=== PATIENT | female | born 1995 ===

== ENCOUNTER 2017-04-27 18:49 | Emergency (ER) | payer MEDICAID, OTHER ==
[2017-04-27 18:49] VITALS: BMI 20.8
[2017-04-27 18:59] VITALS: BP 118/60; PULSE 80; RESP 18; TEMP 97; O2SAT 100
--- NOTE | 2017-04-27 20:08 | ED PDOC ---
HPI: Back Time Seen by Provider: 04/27/17 19:35 Chief Complaint (Nursing): Female Genitourinary Chief Complaint (Provider): flank pain History Per: Patient History/Exam Limitations: no limitations Onset/Duration Of Symptoms: Days (x3) Current Symptoms Are (Timing): Still Present Additional Complaint(s): Ruy Medeiros is a 21 year old female, currently 12 weeks , who presents to the emergency department with a complaint of right flank pain associated with suprapubic pain ongoing for 3 days. Denied fever, chills, vomiting, diarrhea or dysuria. Patient stated she has been taking Motrin at home. P:2 PMD: Duane Walker MD Past Medical History Reviewed: Historical Data, Nursing Documentation, Vital Signs Vital Signs: Last Vital Signs Temp 97 F L 04/27/17 18:54 Pulse 80 04/27/17 18:54 Resp 18 04/27/17 18:54 BP 118/60 04/27/17 18:54 Pulse Ox 100 04/27/17 18:54 - Medical History PMH: No Chronic Diseases - Surgical History Surgical History: - Family History Family History: States: Unknown Family Hx - Social History Current smoker - smoking cessation education provided: No Ex-Smoker (has not smoked in the last 12 months): No Alcohol: None Drugs: Denies - Home Medications Home Medications: Ambulatory Orders Medication Instructions Recorded oxyCODONE/Acetaminophen [Percocet 1 tab PO Q4 PRN #0 tab 09/12/15 5/325 mg Tab] - Allergies Allergies/Adverse Reactions: Allergies Allergy/AdvReac Type Severity Reaction Status Date / Time No Known Allergies Allergy Verified 05/27/15 10:07 Review of Systems ROS Statement: Except As Marked, All Systems Reviewed And Found Negative Constitutional: Negative for: Fever, Chills Gastrointestinal: Positive for: Abdominal Pain (suprapubic). Negative for: Vomiting, Diarrhea Genitourinary Female: Negative for: Dysuria Musculoskeletal: Positive for: Back Pain (right flank) Physical Exam - Reviewed Nursing Documentation Reviewed: Yes Vital Signs Reviewed: Yes - Physical Exam Appears: Positive for: Well, Non-toxic, No Acute Distress Head Exam: Positive for: ATRAUMATIC, NORMAL INSPECTION, NORMOCEPHALIC Skin: Positive for: Normal Color Eye Exam: Positive for: Normal appearance ENT: Positive for: Normal ENT Inspection Neck: Positive for: Normal, Painless ROM, Supple. Negative for: Decreased ROM Cardiovascular/Chest: Positive for: Regular Rate, Rhythm, Chest Non Tender Respiratory: Positive for: Normal Breath Sounds, Accessory Muscle Use. Negative for: Decreased Breath Sounds, Respiratory Distress Gastrointestinal/Abdominal: Positive for: Normal Exam, Soft. Negative for: Tenderness Back: Positive for: Normal Inspection. Negative for: L CVA Tenderness, R CVA Tenderness Extremity: Positive for: Normal ROM. Negative for: Tenderness, Pedal Edema, Deformity Neurologic/Psych: Positive for: Alert, Oriented - Laboratory Results Result Diagrams: 04/27/17 20:53 04/27/17 20:53 - ECG O2 Sat by Pulse Oximetry: 100 (RA) Pulse Ox Interpretation: Normal Medical Decision Making Medical Decision Making: Initial Impression: Flank pain; Initial Plan: * Type and screen * BETA-HCG * CMP * CBC * Urine C&S * Urinalysis * US OB preg Time: 2100 --Labs: within normal limits --Awaiting US results. [id number] FINDINGS: Gestation: There is a single living intrauterine identified. Measurements correlate with a mean gestational age of 13 weeks. The estimated date of delivery is November 02, 2017. Embryonic/ cardiac activity is identified, at a rate of 129 beats per minute. The placenta is normal and fundal in location. BPD 1.9 cm AC 25.8 cm HC 7.5 cm FL 0.9 cm Uterus/cervix: The cervix is closed measuring 4.7 cm. The cervix is closed measuring 4.4 cm. No myometrial mass. Free fluid: No free fluid. IMPRESSION: Live intrauterine , with no evidence of early complications. Followup dedicated anatomic survey between 19-21 weeks is recommended. Urine: no infection Patient is stable for discharge and will follow up with personal [employer]. Patient notes that she feels better after Tylenol. Scribe Attestation: Documented by Leatha Booker, acting as a scribe for Moody Fleming MD. Provider Scribe Attestation: All medical record entries made by the Scribe were at my direction and personally dictated by me. I have reviewed the chart and agree that the record accurately reflects my personal performance of the history, physical exam, medical decision making, and the department course for this patient. I have also personally directed, reviewed, and agree with the discharge instructions and disposition. Disposition - Clinical Impression Clinical Impression: - Patient ED Disposition Is Patient to be Admitted: No Counseled Patient/Family Regarding: Studies Performed, Diagnosis, Need For Followup - Disposition Referrals: [facility] [Outside] Disposition: Routine/Home Disposition Time: 21:45 Condition: IMPROVED Additional Instructions: follow up with your route sales manager in 1-2 days take tylenol as needed for pain return to the ED with any worsening or concerning symptoms Instructions: Preeclampsia (ED) Forms: [employer] (Setswana) Print Language: ROMANIAN
[2017-04-27 21:00] LABS: BASO % 0.5 % (0.0-2.0); EOS # 0.1 K/uL (0.0-0.7); EOS % 1.4 % (0.0-4.0); HEMATOCRIT 37.2 % (34.0-47.0); LYMPH # 2.1 K/uL (1.0-4.3); LYMPH % 25.4 % (20.0-40.0); MEAN CELL VOLUME 88.1 fl (81.0-99.0); MEAN CORPUSCULAR HEMOGLOBIN 29.6 pg (27.0-31.0); MEAN CORPUSCULAR HGB CONC 33.6 g/dL (33.0-37.0); MEAN PLATELET VOLUME 8.2 fl (7.2-11.7); MONO # 0.7 K/uL (0.0-0.8); MONO % 8.7 % (0.0-10.0); NEUT # 5.3 K/uL (1.8-7.0); NRBC % 0.1 % (0.0-0.0); RED CELL DISTRIBUTION WIDTH 13.6 % (11.5-14.5); WHITE BLOOD COUNT 8.3 K/uL (4.8-10.8)
[2017-04-27 21:08] LABS: ALB/GLOB RATIO 1.2 (1.0-2.1); ALKALINE PHOSPHATASE 91 U/L (38-126); ALT/SGPT 33 U/L (9-52); AST/SGOT 25 U/L (14-36); BILIRUBIN,TOTAL < 0.1 mg/dl (0.2-1.3); BLOOD UREA NITROGEN 5 mg/dl (7-17); CALCIUM 9.5 mg/dL (8.4-10.2); CARBON DIOXIDE 22 mmol/L (22-30); CHLORIDE 108 mmol/L (98-107); GFR AFRICAN-AMERICAN > 60; GLUCOSE,RANDOM 96 mg/dL (65-105); SODIUM 142 mmol/l (132-148); TOTAL PROTEIN 7.4 G/DL (6.3-8.2)
[2017-04-27 21:15] LABS: POTASSIUM 3.4 MMOL/L (3.6-5.0)
[2017-04-27 21:42] LABS: RBC URINE < 1 /hpf (0-3); URINE BILIRUBIN NEGATIVE (NEGATIVE); URINE BLOOD NEGATIVE (NEGATIVE); URINE COLOR STRAW (YELLOW); URINE GLUCOSE (UA) 150 mg/dL (Normal); URINE KETONE NEGATIVE (NEGATIVE); URINE LEUKOCYTE ESTERASE TRACE Leu/uL (Negative); URINE PROTEIN NEGATIVE (NEGATIVE); URINE UROBILINOGEN 0.2-1.0 mg/dL (0.2-1.0); WBC URINE < 1 /hpf (0-5)
--- NOTE | 2017-04-27 22:46 | US ---
EXAM: US First Trimester, Transabdominal CLINICAL HISTORY: 21 years old, female; Pain; Other: Back; Gestational age or lmp: 13weeks; ; Additional info: Preganncy suprapubic pain TECHNIQUE: Real-time transabdominal and transvaginal obstetrical ultrasound of the maternal pelvis and a first trimester with image documentation. COMPARISON: US - OB , LIMITED 2015-05-27 13:00 FINDINGS: Gestation: There is a single living intrauterine identified. Measurements correlate with a mean gestational age of 13 weeks. The estimated date of delivery is November 02, 2017. Embryonic/ cardiac activity is identified, at a rate of 129 beats per minute. The placenta is normal and fundal in location. BPD 1.9 cm AC 25.8 cm HC 7.5 cm FL 0.9 cm Uterus/cervix: The cervix is closed measuring 4.7 cm. The cervix is closed measuring 4.4 cm. No myometrial mass. Free fluid: No free fluid. IMPRESSION: Live intrauterine , with no evidence of early complications. Followup dedicated anatomic survey between 19-21 weeks is recommended.
== END 2017-04-27 23:48 | disposition home or self-care (01) ==
LOC: H.ER 18:49
DX: O26.92 Pregnancy related conditions, unspecified, second trimester (principal); R10.2 Pelvic and perineal pain; Z3A.12 12 weeks gestation of pregnancy

== ENCOUNTER 2017-07-06 09:27 | Emergency (ER) | payer OTHER ==
[2017-07-06 12:02] VITALS: BMI 22.6
[2017-07-06 16:15] VITALS: BP 106/61; PULSE 93
--- NOTE | 2017-07-07 08:58 | OBHP ---
Datetime: 07/06/2017 11:52 IP Adm Impression: , intrauterine IP Chief Complaint Other: diarrhea, vomiting and abdominal pain IP Admit Plan: Observation/Evaluation Admit Comment, IP Provider: 21 yo at 22.2 weeks GA based on LMP ON 01/31/27, C/W lenin dumont netta , DONNIE 11/07/17 presents to [facility] w/ c/o nausea, NBNB vomiting x 2 , watery diarrhea x 6 and epiga stric pain( 8/) since 3 am this morning. Pt reports she ate pork and rice, and mixed drinks consist s of raw eggs and evaporated milk last night. Last diarrhea was 11 am this moring and vomiting was at 3 am. Denies any blood or mucus in stool. Denies dysuria, fever, chills, headache or dizziness. Antoine es VB, CTX or LOF. reports +FM. PNC: Dr. Walker, next appointment on 07/08/17. past obhx: X 1 in 2010 at 36 weeks GA, x 1 IN 2016 at 35 weeks GA due to breech pre senation. Past gynhx: denies hx STI or abnormal PAP pmhx: asthma past shx: in 2016 social hx: denies drinking ETOH, smoking or using recreational drugs. family hx: Denies hx DMII or CAD allergies: NKDA medication: PNV Assessment: 21 yo IUP@22.2 weeks GA, has acute gastroenteritis. Plan: NST is reassuring Pt is to be further evaluated in the emergency room. Case d/w on-call OB hospitalist Dr. Elizabeth Olmstead, pgy- OB attending addendum: Patient seen and examined by me with Dr. olmstead. Patient discussed with Dr. Walker and Dr. Knapp. Patient referred to ENT for evaluation and ma ashley possible salmonella poisoning. Patient discussed with Dr. Snider and he was advised to call Dr. Knapp with any questions concerning management. Extremities - PN: Normal Back - PN: Normal Lungs - PN: Normal Heart - PN: Normal Neurologic - PN: Normal HEENT - PN: Normal General - PN: Normal FHR - Baseline A Provider: 150s Comments, ACOG Physical Exam: Abdomen: soft, gravid, +bs. mild epigastric tenderness, no rebound or guarding. IP Hx Assessment: The History has been Reviewed and is Current EGA AdmitDate IP: 22.2 Vital Signs Provider: Reviewed IP Chief Complaint: Illness; Maternal discomfort NICHD Variability Prov Fetus A: Moderate 6-25bpm NICHD Accel Fetus A IP Provider: 10X10 FHR Category Provider Fetus A: Category I NICHD Decel Fetus A IP Provider: None (Annotations: Data stored by CPN on behalf of user)
== END 2017-07-06 12:20 | disposition still patient (30) ==
LOC: H.EROB2 09:27 → H.L&D 09:27 → H.EROB2 12:20
DX: O99.612 Diseases of the digestive system complicating pregnancy, second trimester (principal); K52.9 Noninfective gastroenteritis and colitis, unspecified; Z3A.20 20 weeks gestation of pregnancy; Z87.59 Personal history of other complications of pregnancy, childbirth and the puerperium

== ENCOUNTER 2017-07-06 12:20 | Emergency (ER) | payer OTHER ==
[2017-07-06 12:21] VITALS: BMI 22.6
[2017-07-06 12:28] VITALS: BP 139/54; PULSE 93; RESP 20; TEMP 97; O2SAT 100
--- NOTE | 2017-07-06 14:07 | ED PDOC ---
HPI: Abdomen Time Seen by Provider: 07/06/17 12:22 Chief Complaint (Nursing): GI Problem Chief Complaint (Provider): Diarrhea x 1, abdominal pain History Per: Patient History/Exam Limitations: no limitations Onset/Duration Of Symptoms: Days Outside of [place] travel?: No Current Symptoms Are (Timing): Still Present Associated Symptoms: Nausea, Vomiting, Diarrhea (x 1 ). denies: Fever, Chills Additional Complaint(s): Pt reports epigastric pain which has resolved and one episode of diarrhea yesterday. Past Medical History Reviewed: Historical Data, Nursing Documentation, Vital Signs Vital Signs: Last Vital Signs Temp 97 F L 07/06/17 12:26 Pulse 93 H 07/06/17 12:26 Resp 20 07/06/17 12:26 BP 139/54 L 07/06/17 12:26 Pulse Ox 100 07/06/17 14:07 - Medical History PMH: No Chronic Diseases - Surgical History Surgical History: - Family History Family History: States: Unknown Family Hx - Living Arrangements Living Arrangements: With Family - Social History Current smoker - smoking cessation education provided: No - Home Medications Home Medications: Ambulatory Orders Medication Instructions Recorded oxyCODONE/Acetaminophen [Percocet 1 tab PO Q4 PRN #0 tab 09/12/15 5/325 mg Tab] - Allergies Allergies/Adverse Reactions: Allergies Allergy/AdvReac Type Severity Reaction Status Date / Time No Known Allergies Allergy Verified 05/27/15 10:07 Review of Systems ROS Statement: Except As Marked, All Systems Reviewed And Found Negative Physical Exam - Reviewed Nursing Documentation Reviewed: Yes Vital Signs Reviewed: Yes - Physical Exam Appears: Positive for: Well, Non-toxic, No Acute Distress Head Exam: Positive for: ATRAUMATIC, NORMAL INSPECTION, NORMOCEPHALIC Skin: Positive for: Normal Color, Warm, DRY Eye Exam: Positive for: Normal appearance ENT: Positive for: Normal ENT Inspection Neck: Positive for: Normal, Painless ROM Cardiovascular/Chest: Positive for: Regular Rate, Rhythm Respiratory: Positive for: CNT, Normal Breath Sounds Gastrointestinal/Abdominal: Positive for: Normal Exam, Bowel Sounds, Soft. Negative for: Tenderness Back: Positive for: Normal Inspection Extremity: Positive for: Normal ROM Neurologic/Psych: Positive for: Alert, Oriented - Laboratory Results Result Diagrams: 07/06/17 14:06 07/06/17 14:06 - ECG O2 Sat by Pulse Oximetry: 100 Medical Decision Making Medical Decision Makin - Pt requesting to eat. Stool sample sent to lab, not diarrhea. Disposition - Clinical Impression Clinical Impression: Viral gastroenteritis - Patient ED Disposition Is Patient to be Admitted: No Counseled Patient/Family Regarding: Diagnosis, Need For Followup - Disposition Disposition: Routine/Home Disposition Time: 14:44 Condition: GOOD Instructions: Gastroenteritis (ED) Forms: [employer] (Swedish)
[2017-07-06 14:10] LABS: BASO % 0.3 % (0.0-2.0); EOS # 0.1 K/uL (0.0-0.7); EOS % 0.7 % (0.0-4.0); LYMPH # 0.9 K/uL (1.0-4.3); LYMPH % 9.5 % (20.0-40.0); MEAN CELL VOLUME 88.6 fl (81.0-99.0); MEAN CORPUSCULAR HEMOGLOBIN 30.4 pg (27.0-31.0); MEAN CORPUSCULAR HGB CONC 34.3 g/dL (33.0-37.0); MEAN PLATELET VOLUME 7.9 fl (7.2-11.7); MONO # 0.5 K/uL (0.0-0.8); MONO % 5.8 % (0.0-10.0); NEUT # 7.8 K/uL (1.8-7.0); NEUT % 83.7 % (50.0-75.0); PLATELET COUNT 192 K/uL (130-400); RED CELL DISTRIBUTION WIDTH 13.2 % (11.5-14.5); WHITE BLOOD COUNT 9.3 K/uL (4.8-10.8)
[2017-07-06 14:27] LABS: ALB/GLOB RATIO 1.1 (1.0-2.1); ALKALINE PHOSPHATASE 92 U/L (38-126); ALT/SGPT 38 U/L (9-52); AST/SGOT 25 U/L (14-36); BILIRUBIN,TOTAL 0.4 mg/dl (0.2-1.3); BLOOD UREA NITROGEN 5 mg/dl (7-17); CALCIUM 8.4 mg/dL (8.4-10.2); CARBON DIOXIDE 20 mmol/L (22-30); CHLORIDE 106 mmol/L (98-107); GFR AFRICAN-AMERICAN > 60; GLUCOSE,RANDOM 79 mg/dL (65-105); LIPASE 47 U/L (23-300); POTASSIUM 3.4 MMOL/L (3.6-5.0); SODIUM 135 mmol/l (132-148); TOTAL PROTEIN 6.8 G/DL (6.3-8.2)
[2017-07-06 14:39] LABS: NEUTROPHIL 83 % (42-75); REACTIVE LYMPHOCYTES 1 % (0-0); TOTAL CELLS COUNTED 100
== END 2017-07-06 15:30 | disposition home or self-care (01) ==
LOC: H.ER 12:20
DX: A08.4 Viral intestinal infection, unspecified (principal)

== ENCOUNTER 2017-10-11 11:14 | Inpatient (IN) | payer OTHER ==
[2017-10-11 11:30] VITALS: BMI 25.1
[2017-10-11] MEDS ORDERED: ceFAZolin 2 GM in Sodium Chloride 0.9% 100 ML IVPB ONE (11:45)
[2017-10-11] MEDS: Lactated Ringer's 1,000 ML IV SCH ×2 (11:50→13:06)
[2017-10-11] MEDS ORDERED: Oxytocin 30 units/LR 500ML 30 U/500 ML BAG IV ONE (12:08)
[2017-10-11] MEDS ORDERED: ceFAZolin IV 1 gm in Dextrose 0 GM/0 ML BAG IVPB ONE (12:12)
[2017-10-11 12:33] LABS: BASO % 0.3 % (0.0-2.0); EOS # 0.1 K/uL (0.0-0.7); EOS % 0.7 % (0.0-4.0); HEMOGLOBIN 11.9 g/dL (12.0-16.0); LYMPH # 1.8 K/uL (1.0-4.3); LYMPH % 20.2 % (20.0-40.0); MEAN CELL VOLUME 87.4 fl (81.0-99.0); MEAN CORPUSCULAR HGB CONC 34.3 g/dL (33.0-37.0); MEAN PLATELET VOLUME 8.6 fl (7.2-11.7); MONO # 0.8 K/uL (0.0-0.8); MONO % 8.6 % (0.0-10.0); NEUT # 6.2 K/uL (1.8-7.0); NEUT % 70.2 % (50.0-75.0); NRBC % 0.1 % (0.0-0.0); RBC 3.98 Mil/uL (3.80-5.20); RED CELL DISTRIBUTION WIDTH 13.1 % (11.5-14.5); WHITE BLOOD COUNT 8.8 K/uL (4.8-10.8)
[2017-10-11] MEDS ORDERED: Morphine 1 mg/ml preservative-free Inj(Duramorph) ONE (12:45)
[2017-10-11] MEDS ORDERED: ePHEDrine 50 mg/ml Inj ONE (12:45)
[2017-10-11] MEDS ORDERED: Sodium Chloride 0.9% 10 ML IV ONE (12:45)
--- NOTE | 2017-10-11 13:23 | OBADHP ---
Datetime: 10/11/2017 13:17 IP Chief Complaint Other: prev C/S IP Adm Impression Other: prev C/Sin labor Admit Comment, IP Provider: admit for repeat C/S Extremities - PN: Normal Abdomen - PN: Abnormal Back - PN: Normal Breast - PN: Normal Lungs - PN: Normal Heart - PN: Normal Thyroid - PN: Normal Neurologic - PN: Normal HEENT - PN: Normal General - PN: Normal Presentation-Admit: C FHR - Baseline A Provider: 150 Membranes, Provider: Ruptured Contraction Comments Provider: irregular Comments, ACOG Physical Exam: Abd gravid fundus at 32 cm above sp ext no calf tenderness Gestation - Est Wks by US: 36.0 Nitrazine Provider: Positive IP Hx Assessment: The History has been Reviewed and is Current Vital Signs Provider: Reviewed IP Chief Complaint: Uterine contractions; Suspected ruptured membranes; Other NICHD Variability Prov Fetus A: Moderate 6-25bpm NICHD Accel Fetus A IP Provider: 10X10 Dilatation, Provider: 2-3 cm Effacement, Provider: 50-60 Genitourinary Exam: Normal DTRs - PN: Normal EGA AdmitDate IP: 36.1 IP Adm Impression: , intrauterine ; Active labor IP Admit Plan: Admit to unit; Initiate Section protocol Datetime: 07/06/2017 11:52 FHR Category Provider Fetus A: Category I NICHD Decel Fetus A IP Provider: None
[2017-10-11] MEDS ORDERED: DiphenhydrAMINE 50 mg/ml Inj IVP PRN (14:19)
[2017-10-11] MEDS ORDERED: Oxycodone/Acetaminophen 5/325 mg Tab PO PRN ×4 (14:19→20:15)
--- NOTE | 2017-10-11 15:03 | OBDS ---
DELIVERY PERSONNEL Delivery Doctor: Mandy Walker MD Scrub Nurse: Kinjal Renteria OBT Workgroup Leader: Shai Jaeger RN Anesthesiologist: Geraldo Guadalupe MD MATERNAL INFORMATION Delivery Anesthesia: Spinal Medications in Delivery: Pitocin 30u/500LR Estimated Blood Loss (ml): 800 Placenta Cultured: No Maternal Complications: None Provider Comments: see surgeons note LABOR SUMMARY EDC: 11/07/2017 00:00 LABOR INFORMATION Reason for Induction: Not Applicable Group B Beta Strep: Negative Steroids Given: None Reason Steroids Not Administered: Not Applicable STAGES OF LABOR Stage 3 hrs: -1 Stage 3 min: -59 VAGINAL DELIVERY Episiotomy: None Laceration Extension: N/A Laceration Type: None Laceration Repair: Not Applicable Laceration Repair Note: n/a Sponge Count Correct: Yes Sharps Count Correct: Yes Count Comment: count correct x3 CSECTION DELIVERY Primary Indication: Other Other Primary Indication: possible ROM Secondary Indication: prev C/S in labor CSection Incision: Lower Uterine Transverse Uterine Closure: Double-layer closure BABY A INFORMATION Delivery Date/Time: 10/11/2017 14:02 Method of Delivery: Born in Route : No : N/A Forceps: N/A Vacuum Extraction: N/A Shoulder Dystocia : No SHOULDER DYSTOCIA BABY A Delivery Date/Time: 10/11/2017 14:02 PRESENTATION/POSITION BABY A Presentation: Cephalic PLACENTA INFORMATION BABY A Placenta Delivery Time : 10/11/2017 12:03 Placenta Method of Delivery: Manual Removal Placenta Status: Delivered SCORES BABY A Heart Rate 1 min: >100 bpm Resp Effort 1 min: Good Cry Reflex Irritability 1 min: Cough or Sneeze or Pulls Away Muscle Tone 1 min: Active Motion Color 1 min: Body [place], Extremities Blue SCORE 1 MIN: 9 Heart Rate 5 min: >100 bpm Resp Effort 5 min: Good Cry Reflex Irritability 5 min: Cough or Sneeze or Pulls Away Muscle Tone 5 min: Active Motion Color 5 min: Body [place], Extremities Blue SCORE 5 MIN: 9 INFANT INFORMATION BABY A Gestational Age at Delivery: 36.1 Gestational Status: Outcome : Liveborn Infant Condition : Stable Sex: Female IDENTIFICATION/MEDS BABY A ID Band Number: [id number] ID Band Location: Left Leg; Left Arm WEIGHT/LENGTH BABY A Birthweight (gms): 2370 Weight (lb): 5 Weight (oz): 4 CORD INFORMATION BABY A No. Cord Vessels: 3 Nuchal Cord : N/A Cord Blood Taken: Yes ASSESSMENT BABY A Infant Complications: None Physical Findings at Delivery: Within Normal Limits Infant Respirations: Appears Normal Unclaimed Property Manager/ALS Called : Yes Infant Care By: Transferred To: Nursery
[2017-10-11] MEDS ORDERED: cefOXitin IV 1 gm in Dextrose 1 GM/50 ML BAG IVPB SCH (17:00)
[2017-10-11] MEDS: cefOXitin IV 1 gm in Dextrose 1 GM/50 ML BAG IVPB SCH (21:05)
[2017-10-12] MEDS ORDERED: Lactated Ringer's 1,000 ML IV SCH
[2017-10-12] MEDS: cefOXitin IV 1 gm in Dextrose 1 GM/50 ML BAG IVPB SCH ×3 (04:05→21:39)
[2017-10-12 06:51] LABS: HEMOGLOBIN 10.2 g/dL (12.0-16.0); MEAN CELL VOLUME 87.1 fl (81.0-99.0); MEAN CORPUSCULAR HEMOGLOBIN 30.3 pg (27.0-31.0); MEAN CORPUSCULAR HGB CONC 34.9 g/dL (33.0-37.0); RBC 3.37 Mil/uL (3.80-5.20); RED CELL DISTRIBUTION WIDTH 13.1 % (11.5-14.5); WHITE BLOOD COUNT 10.6 K/uL (4.8-10.8)
--- NOTE | 2017-10-12 11:48 | OP ---
PROCEDURE DATE: 10/11/2017 PREOPERATIVE DIAGNOSES: 1. at term. 2. Previous section in labor. 3. Possible rupture of membranes. POSTOPERATIVE DIAGNOSES: 1. at term. 2. Severe pelvic adhesions. PROCEDURE PERFORMED: Repeat low-transverse segment section and lysis of adhesion. SURGEON: Duane Walker MD ANALYTICAL STRATEGIST: Zack Jennings MD. Dr. Jennings was there during the entire case. [facility] Nurse Staff needed in providing positioning of the patient, delivery of the baby, opening and closure of the abdomen. ANESTHESIA USED: Spinal. ANESTHESIA ADMINISTERED BY: Jack Guadalupe MD ESTIMATED BLOOD LOSS: 800 mL. DRAINS USED: None. REPLACEMENTS USED: None. FINDINGS: 1. Delivery of a living baby girl, baby appears adequate for gestational age, baby cried spontaneously, and pediatrist in attendance. score of 9 and 9. 2. Amniotic fluid, clear. 3. Placenta, complete and intact. 4. Both tubes and ovaries appear grossly within normal limits to inspection bilaterally. 5. Adhesions of the omentum to the anterior abdominal wall and bladder area, also bladder to the lower transverse segment of the uterus, some of this adhesions lysed using blunt and sharp dissection without any complications. DESCRIPTION OF PROCEDURE: The patient was taken to the operating room and placed on the operating table in a supine position. Following the induction of spinal anesthesia, the patient was then replaced in a supine position. A Sarabia catheter was then placed into the bladder and clear fluid was then evacuated from the bladder. Venodyne boots were applied to both legs and the abdomen was then draped and prepped in an usual sterile manner. Anesthesia tested and found to be well secured and a Pfannenstiel incision was then made using sharp dissection along the edges of the previous incision. The incision was then extended down to the subcutaneous tissue using sharp dissection. Hemostasis was obtained by means of electrocoagulation. At this time, the fascia was then identified, was then entered at the midline. Incision of the fascia was then extended laterally on each direction using sharp dissection. Following this, the rectus muscle was then slid at the midline disposing the peritoneum. Peritoneal layer was then picked up using Isaura clamp, retracted superiorly and then entered using sharp dissection. Incision on the peritoneum was then carefully extended superiorly and inferiorly under direct visualization. At this time, severe adhesions of the omentum to the anterior abdominal wall preventing full visualization of the pelvis, these adhesions was then clamped, cut and ligating using 0-Vicryl suture and using also a electrocoagulation. No bleeding noted. At this time, the low-transverse segment of the uterus was then identified. Adhesion of the bladder to this area were then noted to be present, some of these adhesions were lysed using blunt and sharp dissection without any complications. The bladder was then retracted inferiorly using the Garland retractor. Following this, a low-transverse segment of the uterus was then identified and entered using sharp dissection. Incision was then extended laterally on each direction using bandage scissors. Clear fluid noted to be present at this time. Using a manual scooping procedure, a living baby girl was then delivered. The baby was immediately and aggressively aspirated using the bulb suction. The baby cried spontaneously. The umbilicus was then doubly clamped, cut, and the baby handed to the Pediatric personnel who was standing by. Samples of cord blood were then obtained and the placenta was then delivered complete and intact. At this time, the uterus was then exteriorized to provide better visualization. The uterine cavity was then thoroughly cleaned using moist lap pads and the uterus contracted well. At this time, the uterine incision was then secured using multiple T clamps and the uterine incision was then approximated using 0 Vicryl suture in a continuous interlocking manner. The second layer was also applied using 0 Vicryl suture in a continuous manner. Hemostasis was checked and found to be well secured. Following this, we then proceeded to irrigate the pelvic cavity. Free amniotic fluid and blood was then evacuated from the pelvic cavity. All operative areas checked, hemostatically secured. Both tubes and ovaries appeared grossly within normal limits to inspection bilaterally. Again, all operative areas checked, hemostatically secured and the uterus allowed to retract back into its original position. Again, the pelvic cavity was then irrigated with saline solution. Hemostasis was secured and the peritoneum was then closed using 0-Vicryl suture in a continuous manner. At this time, the rectus muscle was also approximated in the midline using 0-Vicryl suture in a continuous manner. Hemostasis checked and found to be well secured. The fascia was then identified, it was then approximated using 1 Vicryl suture in a continuous manner. Fascia was then checked and found to be free of defect. Subcutaneous tissue irrigated using saline solution and approximated using several interrupted 2-0 plain sutures. The skin was then approximated using a 3-0 Prolene in a subcuticular fashion. Steri-Strips were then applied. The patient tolerated the procedure well. There were no complications. She was transferred to the recovery room in satisfactory condition. Clear fluid noted to be present in the Sarabia bag at this time. Sponge, instruments, and needle counts were correct x3. Duane Walker MD MTDD
--- NOTE | 2017-10-13 07:39 | OBPPN ---
Datetime: 10/13/2017 07:29 PP Pain Prov: Within normal limits PP Pain Prov comment: no SOB, chest or leg pains PP Nausea Prov: Denies PP Flatus Prov: Yes PP BM Prov: No PP Breasts Prov: Normal PP Lungs Prov: Normal PP Abdomen/Uterus Prov: Abnormal PP Lochia Prov: Normal PP Vulva/Perineum Prov: Normal PP CVA Tenderness Prov: Normal PP Extremities Prov: Normal PP C/S Incision Prov: Normal PP Progress Prov: Normal PP Comments Phys Exam Prov: breast not engorged NT, abd soft ND, depressible fundus firm below the u mb, incision clean and dry no suppt or discharge no active bleeding Ext no calf tendernes PP Impression Prov: Normal progression PP Plan Prov: Continue present management PP Progress Note Prov: CBC stable Continue PO care and OOB and ambulation Dulcolax suppt if no bm th is pm IP PP Procedures: None Vital Signs Provider PP: Reviewed
[2017-10-13] MEDS: Benzocaine/Menthol (Cepacol) Lozenge PO PRN (11:03)
[2017-10-14] MEDS: Benzocaine/Menthol (Cepacol) Lozenge PO PRN (01:58)
--- NOTE | 2017-10-14 07:56 | OBPPN ---
Datetime: 10/14/2017 07:51 PP Pain Prov: Within normal limits PP Pain Prov comment: Denies SOB, chest or leg pains PP Nausea Prov: Denies PP Flatus Prov: Yes PP BM Prov: Yes PP Breasts Prov: Normal PP Lungs Prov: Normal PP Abdomen/Uterus Prov: Abnormal PP Lochia Prov: Normal PP Vulva/Perineum Prov: Normal PP CVA Tenderness Prov: Normal PP Extremities Prov: Normal PP C/S Incision Prov: Normal PP Progress Prov: Normal PP Comments Phys Exam Prov: breast not engorged NT, abd soft ND fundus firm below the umb Incjision clean and dry no suppt discharge or active bleeding Prolene in place Ext no calf tenderness PP Impression Prov: Normal progression PP Plan Prov: Discharge PP Progress Note Prov: D/c home with instructions and follow up office i wk IP PP Procedures: None Vital Signs Provider PP: Reviewed
--- NOTE | 2017-10-14 08:01 | OBDCSUM ---
Datetime: 07/06/2017 11:57 Discharged to, Provider: Home Disch Instr Activity: Bedrest; May be up to bathroom; May be up for meals; May Shower Disch Instr Diet: Regular Discharge Instructions, Provider: Routine instructions given Discharge Diagnosis, Provider: Delivery Follow up in weeks, Provider: 1 wk Contraception discussed, Prov: Yes Disch Activity Restrictions: No exercising; No lifting; No driving; Minimize walking; Minimize stair -climbing; No sexual activity; Nothing in vagina - [place], tampons, douche Discharge Comment, Provider: rx for percocet and continue PNC vit and iron Discharge Diagnosis Prov Other: srom, prev C/s in labor Contraception after Delivery: Undecided
--- NOTE | 2017-10-14 08:07 | OBDCSUM ---
Datetime: 10/14/2017 08:03 Discharged to, Provider: Home Follow up at, Provider: Dr betancourt Disch Instr Activity: Bedrest; May be up to bathroom; May be up for meals; May Shower Disch Instr Diet: Regular Discharge Instructions, Provider: Routine instructions given Discharge Diagnosis, Provider: Delivery Discharge Time: 10/14/2017 08:04 Follow up in weeks, Provider: 1wk Contraception discussed, Prov: Yes Disch Activity Restrictions: No exercising; No lifting; No driving; Minimize walking; Minimize stair -climbing; No sexual activity; Nothing in vagina - [place], tampons, douche Discharge Comment, Provider: percocet rx given and continue PNC vjit and iron Discharge Diagnosis Prov Other: srom, pre C/S in labor Contraception after Delivery: Undecided Datetime: 07/06/2017 11:57 Discharged to, Provider: Home Disch Instr Activity: Bedrest; May be up to bathroom; May be up for meals; May Shower Disch Instr Diet: Regular Discharge Instructions, Provider: Routine instructions given Discharge Diagnosis, Provider: Delivery Discharge Time: 10/14/2017 11:57 Follow up in weeks, Provider: 1 wk Contraception discussed, Prov: Yes Disch Activity Restrictions: No exercising; No lifting; No driving; Minimize walking; Minimize stair -climbing; No sexual activity; Nothing in vagina - [place], tampons, douche Discharge Comment, Provider: rx for percocet and continue PNC vit and iron Discharge Diagnosis Prov Other: srom, prev C/s in labor Contraception after Delivery: Undecided
[2017-10-14] MEDS ORDERED: Lansinoh for Breast Feeding Mothers TP ONE (10:24)
[2017-10-14 18:01] VITALS: BP 96/58; PULSE 84; RESP 20; TEMP 97.7; O2SAT 100
== END 2017-10-14 13:20 | disposition home or self-care (01) | DRG 371 ==
LOC: H.EROB2 11:14 → H.L&D 11:59 → H.OB/GYN 20:00
PROVIDERS: ADMIT Specialist; ATTEND Specialist
PROC: 10D00Z1 Extraction of Products of Conception, Low, Open Approach (ICD-10-PCS; principal; 2017-10-11)
PROC: 4A1HXCZ Monitoring of Products of Conception, Cardiac Rate, External Approach (ICD-10-PCS; 2017-10-11)
DX: O34.219 Maternal care for unspecified type scar from previous cesarean delivery (principal); N85.8 Other specified noninflammatory disorders of uterus; O60.10X0 Preterm labor with preterm delivery, unspecified trimester, not applicable or unspecified; Z3A.36 36 weeks gestation of pregnancy; Z37.0 Single live birth; N73.6 Female pelvic peritoneal adhesions (postinfective); O99.89 Other specified diseases and conditions complicating pregnancy, childbirth and the puerperium

== ENCOUNTER 2018-08-24 17:57 | Emergency (ER) | payer MEDICAID, OTHER ==
[2018-08-24 17:58] VITALS: BMI 25.1
[2018-08-24 18:41] VITALS: RESP 16; O2SAT 100
[2018-08-24] MEDS ORDERED: Sodium Chloride 0.9% 1,000 ML IV STA (19:40)
--- NOTE | 2018-08-24 20:27 | ED PDOC ---
HPI: Abdomen Time Seen by Provider: 08/24/18 19:27 Chief Complaint (Nursing): Abdominal Pain Chief Complaint (Provider): Abdominal Pain History Per: Patient History/Exam Limitations: no limitations Onset/Duration Of Symptoms: Days (x1 day) Current Symptoms Are (Timing): Still Present Location Of Pain/Discomfort: Epigastric Associated Symptoms: Nausea, Vomiting Additional Complaint(s): Ruy Medeiros is a 23 year old female with a past medical history of gastritis, who presents to the emergency department complaining of abdominal pain associated with nausea and x3-6 episodes of non bilious and non bloody vomiting, onset x1 day. Patient has an estimated gestational age of 12-13 weeks. She further states that her son was seen here on wednesday and was diagnosed with influenza. Patient further reports of a mild generalized headache but denies any fever, chills, vaginal bleeding, vaginal discharge, urinary symptoms or body aches. PMD: Duane Walker : 4 Para: 3 Past Medical History Reviewed: Historical Data, Nursing Documentation, Vital Signs Vital Signs: Last Vital Signs Temp 97.3 F L 08/24/18 18:34 Pulse 84 08/24/18 18:34 Resp 16 08/24/18 18:34 BP 102/66 08/24/18 18:34 Pulse Ox 100 08/24/18 18:34 - Medical History PMH: Gastritis Denies: Depression, Diabetes, HTN - Surgical History Surgical History: - Family History Family History: States: Unknown Family Hx - Social History Current smoker - smoking cessation education provided: No Ex-Smoker (has not smoked in the last 12 months): No Alcohol: None Drugs: Denies - Immunization History Hx Tetanus Toxoid Vaccination: No Hx Influenza Vaccination: No Hx Pneumococcal Vaccination: No - Home Medications Home Medications: Ambulatory Orders Medication Instructions Recorded RX: oxyCODONE/Acetaminophen 1 tab PO Q4 PRN #0 tab 09/12/15 [Percocet 5/325 mg Tab] RX: Pnv #14/Ferrous Fum/Folic Acid 1 tab PO DAILY 10/11/17 [Completenate Tablet Chew] Doxylamine/Pyridoxine HCl (B6) 1 - 2 each PO HS #16 tablet. 08/24/18 [Cintia Muñiz 10-10 mg Tablet] Esomeprazole Magnesium [Nexium] 20 mg PO QAM #10 ecc 08/24/18 Oseltamivir Cap [Tamiflu] 75 mg PO BID #10 cap 08/24/18 - Allergies Allergies/Adverse Reactions: Allergies Allergy/AdvReac Type Severity Reaction Status Date / Time No Known Allergies Allergy Verified 05/27/15 10:07 Review of Systems ROS Statement: Except As Marked, All Systems Reviewed And Found Negative Constitutional: Negative for: Fever, Chills, Other (body aches) Gastrointestinal: Positive for: Nausea, Vomiting, Abdominal Pain Genitourinary Female: Negative for: Dysuria, Frequency, Incontinence, Hematuria, Vaginal Discharge, Vaginal Bleeding Neurological: Positive for: Headache Physical Exam - Reviewed Nursing Documentation Reviewed: Yes Vital Signs Reviewed: Yes - Physical Exam Appears: Positive for: Non-toxic, No Acute Distress Head Exam: Positive for: ATRAUMATIC, NORMOCEPHALIC Skin: Positive for: Normal Color, Warm, Dry Eye Exam: Positive for: Normal appearance, EOMI, PERRL ENT: Positive for: Normal ENT Inspection Neck: Positive for: Normal, Painless ROM, Supple Cardiovascular/Chest: Positive for: Regular Rate, Rhythm. Negative for: Murmur Respiratory: Positive for: Normal Breath Sounds. Negative for: Respiratory Distress Gastrointestinal/Abdominal: Positive for: Tenderness (epigastric tenderness) Back: Positive for: Normal Inspection. Negative for: Vertebral Tenderness Neurologic/Psych: Positive for: Alert, Oriented. Negative for: Motor/Sensory Deficits - Laboratory Results Result Diagrams: 08/24/18 20:07 08/24/18 20:07 - ECG O2 Sat by Pulse Oximetry: 100 (RA) Pulse Ox Interpretation: Normal Medical Decision Making Medical Decision Making: Time: 2006 Impression: 23 year old female presenting with vomiting, nausea, abdominal pain and headache, in the setting of early . Plan: --Beta-HCG quantitative --CMP --Lipase --ED urine --ED urine dipstick --CBC with differential --Pepcid 20 mg IV --Reglan 10 mg IVPB x2 --Sodium chloride 1,000 ml --IV insertion --Influenza A B --Urinalysis --Gallbladder and Pancreas US --OB US Time: 2200 Abdomen US FINDINGS: LIVER: Within normal limits in size and echogenicity. No mass. GALLBLADDER: The gallbladder appears within normal limits. No gallbladder wall thickening or pericholecystic fluid. COMMON BILE DUCT: Within normal limits in size. 3 mm. PANCREAS: The visualized pancreas appears within normal limits. The distal pancreas is obscured by bowel gas. RIGHT KIDNEY: Unremarkable. Normal renal contours. No renal mass or calculus. No hydronephrosis. IMPRESSION: Unremarkable right upper quadrant ultrasound. Time: 2207 OB US Findings Uterus Single live intrauterine gestation. CRL equivalent to 15 wks/1 days gestation Gestational sac diameter measures 7 cm age (Ultrasound estimated): 13 weeks 1 day +/- 1 week Heart rate: 169 bpm. Jo-gestational hemorrhage: None. Uterus measures 13.7 x 7.7 x 11 cm. No mass. Cervix Long and closed measuring 5 cm. No cervical abnormality seen. Right Ovary Not seen. Left Ovary Not seen. Free Fluid None. Other Findings None. Impression 1. Single live intrauterine gestation with age of 13 weeks 1 day +/- 1 week. 2. Both ovaries are not visualized. Time: 2246 --Patient's labs have been reviewed no abnormalities. --Patient's symptoms have improved. --Diagnosis is gastritis with abdominal pain in early . --Patient is stable for discharge. Scribe Attestation: Documented by Gigi Lewis, acting as a scribe for Herb Gustafson MD. Provider Scribe Attestation: All medical record entries made by the Scribe were at my direction and p ersonally dictated by me. I have reviewed the chart and agree that the record accurately reflects my personal performance of the history, physical exam, medical decision making, and the department course for this patient. I have also personally directed, reviewed, and agree with the discharge instructions and disposition. Disposition - Clinical Impression Clinical Impression: Abdominal pain during , Gastritis - Disposition Disposition: Routine/Home Disposition Time: 22:45 Condition: STABLE Prescriptions: Doxylamine/Pyridoxine HCl (B6) [Cintia Muñiz 10-10 mg Tablet] 1 - 2 each PO HS #16 tablet. Esomeprazole Magnesium [Nexium] 20 mg PO QAM #10 ecc Oseltamivir Cap [Tamiflu] 75 mg PO BID #10 cap Instructions: Gastritis, Stomach Pain in Early Forms: [facility] ([place]) Print Language: BULGARIAN
[2018-08-24 20:38] LABS: BASO % 0.2 % (0.0-2.0); EOS % 0.1 % (0.0-4.0); HEMOGLOBIN 12.7 g/dL (12.0-16.0); LYMPH # 0.7 K/uL (1.0-4.3); LYMPH % 6.2 % (20.0-40.0); MEAN CELL VOLUME 82.9 fl (81.0-99.0); MEAN CORPUSCULAR HEMOGLOBIN 27.1 pg (27.0-31.0); MEAN CORPUSCULAR HGB CONC 32.7 g/dL (33.0-37.0); MEAN PLATELET VOLUME 8.8 fl (7.2-11.7); MONO # 0.5 K/uL (0.0-0.8); MONO % 4.6 % (0.0-10.0); NEUT # 9.9 K/uL (1.8-7.0); NEUT % 88.9 % (50.0-75.0); NRBC % 0.1 % (0.0-0.0); PLATELET COUNT 210 K/uL (130-400); RBC 4.67 Mil/uL (3.80-5.20); RED CELL DISTRIBUTION WIDTH 15.4 % (11.5-14.5); WHITE BLOOD COUNT 11.2 K/uL (4.8-10.8)
[2018-08-24 20:43] LABS: ALB/GLOB RATIO 1.2 (1.0-2.1); ALBUMIN 4.2 g/dL (3.5-5.0); ALT/SGPT 24 U/L (9-52); AST/SGOT 27 U/L (14-36); BLOOD UREA NITROGEN 6 mg/dl (7-17); CALCIUM 9.5 mg/dL (8.4-10.2); GFR NON-AFRICAN AMERICAN > 60; LIPASE 44 U/L (23-300)
[2018-08-24 20:45] LABS: SQUAMOUS EPITHIAL 8 /hpf (0-5); URINE BACTERIA OCC (<OCC); URINE BILIRUBIN NEGATIVE (NEGATIVE); URINE BLOOD NEGATIVE (NEGATIVE); URINE CLARITY CLOUDY (Clear); URINE COLOR YELLOW (YELLOW); URINE GLUCOSE (UA) NEG (NEGATIVE); URINE LEUKOCYTE ESTERASE NEG Leu/uL (Negative); URINE PROTEIN 30 mg/dL (NEGATIVE); URINE UROBILINOGEN 0.2-1.0 mg/dL (0.2-1.0)
[2018-08-24 22:09] LABS: BANDS 4 % (0-2); LYMPHOCYTE 8 % (20-50); MONOCYTE 3 % (0-10); NEUTROPHIL 85 % (42-75); PLATELET ESTIMATE NORMAL (NORMAL); TOTAL CELLS COUNTED 100
[2018-08-24 22:10] LABS: ANISOCYTOSIS SLIGHT; MICROCYTOSIS SLIGHT; POIKILOCYTOSIS SLIGHT
[2018-08-24 23:15] VITALS: BP 109/71; PULSE 79; TEMP 97.8
--- NOTE | 2018-08-25 12:21 | US ---
Date of service: 08/24/2018 HISTORY: Abdominal pain COMPARISON: None. TECHNIQUE: Grayscale imaging was performed. FINDINGS: LIVER: Measures 13.3 cm in length. Normal echogenicity of the liver parenchyma. No mass. No intrahepatic bile duct dilatation. GALLBLADDER: There are no gallstones, wall thickening or pericholecystic fluid. The sonographic Plummer's sign is negative. COMMON BILE DUCT: Measures 3.0 mm. No stones. No dilatation. PANCREAS: Unremarkable as visualized. No mass. No ductal dilatation. RIGHT KIDNEY: Measures 11.3 cm in length. Normal echogenicity. No calculus, mass, or hydronephrosis. AORTA: No aneurysmal dilatation. IVC: Unremarkable. OTHER FINDINGS: None . IMPRESSION: No cholelithiasis or biliary dilatation. A preliminary report was provided by [employer].
--- NOTE | 2018-08-25 12:35 | US ---
Date of service: 08/24/2018 PROCEDURE: OB Pelvic Ultrasound HISTORY: Abdominal pain, COMPARISON: None available. FINDINGS: UTERUS: Single live intrauterine gestation. CRL measures 7.0 cm equivalent to 13 weeks and 1 day of gestational age. Gestational sac diameter measures 7.0 cm. age (Ultrasound estimated): Thirteen weeks and 1 day Date of delivery (Ultrasound estimated) : 02/28/2019 Heart rate: 169 bpm. Jo-gestational hemorrhage: None. Uterus measures 13.7 x 7.7 x 11.0 cm. No mass CERVIX: Long and closed. No cervical abnormality seen. RIGHT OVARY: Not visualized. LEFT OVARY: Not visualized. FREE FLUID: None. OTHER FINDINGS: None. IMPRESSION: Single live intrauterine gestation with mean gestational age of 13 weeks and 1 day. The estimated date of delivery by ultrasound is 02/28/2019. The ultrasound dates correspond with the clinical dates. A preliminary report was provided by [facility].
== END 2018-08-24 23:10 | disposition home or self-care (01) ==
LOC: H.ER 17:57
DX: O26.91 Pregnancy related conditions, unspecified, first trimester (principal); R10.2 Pelvic and perineal pain; K29.70 Gastritis, unspecified, without bleeding; O99.612 Diseases of the digestive system complicating pregnancy, second trimester; Z3A.13 13 weeks gestation of pregnancy; Z87.891 Personal history of nicotine dependence
CPT/HCPCS: 76705; 76815; 80053; 81003; 81025; 83690; 84702; 85025; 87804; 96361; 96374; 96375; 99284; J2765; J7030